=== PATIENT | female | born 1945 | race Caucasian/White ===

== ENCOUNTER 2020-08-01 15:39 | Emergency (ER) | payer MEDICARE, BC ==
[~2020-08-01] VITALS: Ht 167.6 cm; Wt 113.9 kg
[~2020-08-01 15:39] MED LIST: APIX5TAB3 PO; LEVO50TA8 PO; NITR0.4T51 PO; OMEP-50 PO
[2020-08-01 16:25] LABS: BASOPHILS # (AUTO) 0.1 X10'3 (0-0.2); BASOPHILS % (AUTO) 0.8 % (0-1); EOSINOPHILS # (AUTO) 0.3 X10'3 (0-0.9); EOSINOPHILS % (AUTO) 3.8 % (0-6); HEMATOCRIT 46.5 % (35.0-45.0); HEMOGLOBIN 15.6 g/dl (12.0-16.0); LYMPHOCYTES # (AUTO) 2.6 X10'3 (1.1-4.8); LYMPHOCYTES % (AUTO) 28.8 % (21-51); MEAN CORPUSCULAR HEMOGLOBIN 29.8 PG (27.0-31.0); MEAN CORPUSCULAR HGB CONC 33.6 g/dL (33.0-36.5); MEAN CORPUSCULAR VOLUME 88.7 FL (78-98); MEAN PLATELET VOLUME 7.8 FL (7.4-10.4); MONOCYTES # (AUTO) 0.7 X10'3 (0-0.9); MONOCYTES % (AUTO) 7.7 % (2-12); NEUTROPHILS # (AUTO) 5.3 X10'3 (1.8-7.7); NEUTROPHILS % (AUTO) 58.9 % (42-75); PLATELET COUNT 282 X10'3 (140-440); RED BLOOD COUNT 5.25 X10'6 (4.20-5.60); RED CELL DISTRIBUTION WIDTH 13.9 % (11.5-14.5)
[2020-08-01 16:39] LABS: ALANINE AMINOTRANSFERASE 37 U/L (12-78); ALBUMIN 3.9 G/DL (3.4-5.0); ALKALINE PHOSPHATASE 88 IU/L (46-116); ANION GAP 8 (8-16); ASPARTATE AMINO TRANSFERASE 21 U/L (10-37); BILIRUBIN,TOTAL 0.5 MG/DL (0.1-1.0); BLOOD UREA NITROGEN 16 MG/DL (7-18); BUN/CREATININE RATIO 18.4 (6.6-38.0); CHLORIDE 104 MMOL/L (99-107); CREATININE 0.87 MG/DL (0.40-0.90); GLUCOSE 121 MG/DL (70-104); POTASSIUM 3.9 MMOL/L (3.5-5.1); SODIUM 138 MMOL/L (135-145); TOTAL CARBON DIOXIDE 26.5 MMOL/L (24-32); TOTAL PROTEIN 7.7 G/DL (6.4-8.2); eGFR 64 ML/MIN
[2020-08-01 17:19] LABS: D-DIMER 0.59 MG/L FEU (0-0.50)
[2020-08-01] MEDS ORDERED: iohexol 350MG/ML 100ml bottle IV ONE (17:38)
--- NOTE | 2020-08-01 17:38 | NUR ---
pt to ct
[2020-08-01] MEDS ORDERED: methylPREDNISolone sod succ 125mg/2ml vial IV ONE (18:30)
[2020-08-01] MEDS ORDERED: ipratropium/albuterol 3ml nebule NEB ONE (18:30)
[2020-08-01] MEDS ORDERED: PRED20TA PO (18:34)
[2020-08-01] MEDS ORDERED: ALBU6.7H9 INH (18:34)
[2020-08-01 19:10] VITALS: BP 168/83
== END 2020-08-01 19:12 | disposition home or self-care (01) ==
LOC: ER 15:40
DX: I10 Essential (primary) hypertension (principal); R07.89 Other chest pain; J45.909 Unspecified asthma, uncomplicated; Z88.5 Allergy status to narcotic agent; Z79.899 Other long term (current) drug therapy
CPT/HCPCS: 36415; 71045; 71275; 80053; 83880; 84484; 85025; 85379; 93005; 94640; 96374; 99285; J2930; Q9967; 94760